=== PATIENT | male | born 1970 | race Caucasian/White ===

== ENCOUNTER 2017-05-24 08:58 | Emergency (ER) | payer OTHER ==
[~2017-05-24] VITALS: Ht 180.3 cm; Wt 94.4 kg
[~2017-05-24 08:58] MED LIST: ALBU18HF INHALATION; AZIT500T3 PO; BENZ100C70 PO; PRED20TA PO
[2017-05-24 09:00] VITALS: Ht 180.3 cm; Wt 94.4 kg
[2017-05-24] MEDS ORDERED: KETOROLAC 30 MG INJ IM STA (09:26)
[2017-05-24] MEDS ORDERED: AZIT250T94 PO (09:59)
[2017-05-24] MEDS ORDERED: CETI10CA PO (09:59)
[2017-05-24] MEDS ORDERED: NAPR-260 PO (10:00)
--- NOTE | 2017-05-24 10:05 | ERD ---
ER Documentation Chief Complaint Chief Complaint stuffy nose , cold , cough, body ache x 2 days HPI This is a 46-year-old male presents the emergency department today complaining of back pain. States he has herniated disks in his back. States he has been out of his [place] for 2 months. States that he is waiting on a referral for airbrush painter. States that he also has sinus congestion and pressure and a history of emphysema. States he has a pulmonology specialist and is trying to follow back up with him. Denies any cough, shortness of breath , fevers or chills, headache, penis, blurred vision, loss of bowel or bladder control. ROS All systems reviewed and are negative except as per history of present illness. Medications Home Meds Active Scripts Naproxen* (Naprosyn*) 500 Mg Tablet, 500 MG PO BID Y for PAIN AND/OR INFLAMMATION, #30 TAB Prov:YURY WILKINSON PA-C 05/24/17 Cetirizine Hcl* (Zyrtec*) 10 Mg Capsule, 10 MG PO DAILY, #14 TAB.CHEW Prov:YURY WILKINSON PA-C 05/24/17 Azithromycin* (Zithromax*) 250 Mg Tablet, 250 MG PO .ZPACK DIRECTED, #6 TAB TAKE 500 MG (2 TABS) THE FIRST DAY THEN 250 MG (1 TAB) DAYS 2-5 Prov:YURY WILKINSON PA-C 05/24/17 Albuterol Sulfate* (Ventolin HFA*) 18 Gm Hfa.aer.ad, 2 PUFF INHALATION Q4H, #1 INHALER Prov:TRIP ALLEN 11/09/15 Benzonatate* (Tessalon Perle*) 100 Mg Capsule, 100 MG PO Q8H Y for COUGH, #14 CAP Prov:TRIP ALLEN 11/09/15 Prednisone* (Prednisone*) 20 Mg Tab, 40 MG PO DAILY for 4 Days, TAB Prov:TRIP ALLEN 11/09/15 Azithromycin* (Zithromax*) 500 Mg Tablet, 500 MG PO DAILY for 5 Days, TAB Prov:TRIP ALLEN 11/09/15 Allergies Allergies: Coded Allergies: No Known Allergy (Unverified , 11/09/15) PMhx/Soc Medical and Surgical Hx: pt denies Medical Hx, pt denies Surgical Hx History of Surgery: Yes (gallbladder) Anesthesia Reaction: No Hx Neurological Disorder: No Hx Respiratory Disorders: No Hx Cardiac Disorders: Yes (hypertension) Hx Psychiatric Problems: Yes (ANXIETY) Hx Miscellaneous Medical Probl: Yes (herniated disk, Hep C) Hx Alcohol Use: No Hx Substance Use: No Hx Tobacco Use: No Physical Exam Vitals Vital Signs Date Time Temp Pulse Resp B/P Pulse Ox O2 Delivery O2 Flow Rate FiO2 05/24/17 09:00 97.9 89 18 173/107 96 Physical Exam Const: NAD, talkative Head: Atraumatic Eyes: Normal Conjunctiva ENT: Is normal. Nose no drainage. Throat erythema no exudate no vesicles Neck: Full range of motion..~ No meningismus. Resp: Clear to auscultation bilaterally breath sounds. No wheezing. Cardio: Regular rate and rhythm, no murmurs Abd: Soft, non tender, non distended. Normal bowel sounds Skin: No petechiae or rashes Back: Mild lumbar spine midline and bilateral paraspinal tenderness. Negative straight leg raise. Pulses 2+. Distal neurovascularly intact. Ext: No cyanosis, or edema Neur: Awake and alert Psych: Normal Mood and Affect Results 24 hrs Current Medications Medications (Trade) Dose Ordered Sig/Binh Route PRN Reason Start Time Stop Time Status Last Admin Dose Admin Ketorolac Tromethamine (Toradol) 30 mg ONCE STAT IM 05/24/17 09:26 05/24/17 09:27 DC 05/24/17 09:33 Procedures/MDM This is a 46-year-old male who presents to the emergency department today with complaints of sinus congestion and back pain. Patient has a history of chronic back pain and has herniated disks. Do not feel the patient requires further workup at this time. Patient for acute fracture dislocation. Low suspicion for cauda equina or abscess. Complaining of some sinus congestion. His summary reports states that he has a cold cough and body aches. I asked the patient further about this and he indicated that he did not have any body aches as for cough that is new. Low suspicion for influenza at this time. Patient was concerned about his sinus congestion because he is concerned that if something gets into his chest that he is going to have further problems given his history of emphysema. Given patient's concern and past medical history as well as history of hepatitis C I did give the patient a prescription for azithromycin. Patient only takes Flonase and I gave him a prescription for Zyrtec and Naprosyn as well. Low suspicion for pneumonia, PE, abscess, pleural effusion. Symptoms at this time is consistent with chronic back pain and possible sinusitis versus viral URI. Patient's blood pressure was elevated at 173/107. Patient denies any headache, dizziness, blurred vision she does take medication for his blood pressure. I instructed the patient to follow-up with his primary care doctor. Given Toradol here in the emergency department. Patient was given permission for airbrush painter. He was instructed to follow back up with his primary care doctor for the referral for pain management as well as pulmonology specialist. At this time the patient is stable for discharge and outpatient management. Patient should follow up with their PCP in the next 1-2 days. They may return to the emergency department sooner for any persistent or worsening of symptoms. Patient understood and agreed with the plan. Departure Diagnosis: Primary Impression: Sinusitis Sinusitis location: frontal Chronicity: unspecified Qualified Code: J32.1 - Frontal sinusitis, unspecified chronicity Additional Impression: Back pain Back pain location: low back pain Chronicity: acute Back pain laterality: bilateral Sciatica presence: without sciatica Qualified Code: M54.5 - Acute bilateral low back pain without sciatica Condition: Fair Patient Instructions: Self-Care for Sinusitis, Back Pain (Acute Or Chronic) Referrals: RYAN MATTHEW MD, ANTHONY Jr., MD SCHLESINGER, MARK P. MD your PCP your party host Additional Instructions: Call your primary care doctor TOMORROW for an appointment during the next 1-2 days.See the doctor sooner or return here if your condition worsens before your appointment time. Keep your appointment for your pulmonology specialist. Follow-up on your appointment with airbrush painter. Take Naprosyn for back pain. Take antibiotics as prescribed. Take Zyrtec as prescribed. Take your usual pulmonology medications. YURY WILKINSON PA-C May 24, 2017 10:05
== END 2017-05-24 10:45 | disposition home or self-care (01) ==
LOC: FTE 08:58
DX: J32.1 Chronic frontal sinusitis (principal); M54.5 Low back pain; I10 Essential (primary) hypertension
CPT/HCPCS: 96372; J1885; Z7502

== ENCOUNTER 2017-11-14 08:40 | Emergency (ER) | END 2017-11-14 11:04 | disposition home or self-care (01) ==